=== PATIENT | female | born 1975 | race Caucasian/White ===

== ENCOUNTER 2022-02-10 05:35 | Day surgery (SDC) | payer OTHER, MEDICARE, MEDICAID ==
[~2022-02-10] VITALS: Ht 170.2 cm; Wt 94.5 kg
[~2022-02-10 05:35] MED LIST: CALC-933 PO; CHLO100T42 PO; CLON-592 PO; DOCU-350 PO; FEXO180T94 PO; LEVO1TAB12 PO; LINA290C PO; MAGN-169 PO; METO25 PO; OMEG1CAP45 PO
[2022-02-10] MEDS ORDERED: MIDAZOLAM HCL 2 MG/2 ML VIAL IVP ONE (05:36)
[2022-02-10] MEDS ORDERED: FentaNYL CITRATE PF 100 MCG/2 ML VIAL IVP ONE (05:36)
[2022-02-10] MEDS ORDERED: RINGERS SOLUTION,LACTATED 1,000 ML IV ONE (06:00)
[2022-02-10 06:36] LABS: COVID AG,FIA SOURCE NASOPHARYNGEAL
[2022-02-10 08:18] LABS: BASOPHILS % (AUTO) 0.9 % (0.0-2.0); EOSINOPHILS % (AUTO) 2.5 % (1.0-6.0); HEMATOCRIT 36.6 % (36-46); HEMOGLOBIN 12.4 g/dL (12.0-16.0); LYMPHOCYTES # (AUTO) 1.8 K/uL (1.0-4.8); LYMPHOCYTES % (AUTO) 22.1 % (22.0-44.0); MEAN CORPUSCULAR HEMOGLOBIN 28.9 pg (26.0-34.0); MEAN CORPUSCULAR HGB CONC 33.9 G/dL (31.0-37.0); MEAN CORPUSCULAR VOLUME 85 fL (80-100); MONOCYTES # (AUTO) 0.6 K/uL (0.1-1.0); MONOCYTES % (AUTO) 7.1 % (2.0-9.0); NEUTROPHILS # (AUTO) 5.5 K/uL (1.8-7.7); NEUTROPHILS % (AUTO) 67.4 % (40.0-70.0); PLATELET COUNT (AUTO) 258 K/uL (150-450); RED CELL DISTRIBUTION WIDTH 13.9 % (11.5-14.5)
[2022-02-10 08:27] LABS: ANION GAP 5 mmol/L (8-16); CALCIUM, TOTAL 8.6 mg/dL (8.8-10.5); CARBON DIOXIDE 29 mmol/L (22-29); CHLORIDE 96 mmol/L (98-107); CREATININE 0.71 mg/dL (0.60-1.30); GLOMERULAR FILTR. RATE CALC > 60 mL/min (>60); GLUCOSE,RANDOM 109 mg/dL (70-110); POTASSIUM 4.4 mmol/L (3.5-5.1); SODIUM SERUM 130 mmol/L (136-145); UREA NITROGEN, BLOOD 10 mg/dL (7-18)
[2022-02-10 08:34] LABS: ALANINE AMINOTRANSFERASE 23 U/L (12-78); ALBUMIN 3.2 g/dL (3.4-5.0); ALKALINE PHOSPHATASE 107 U/L (46-116); ASPARTATE AMINOTRANSFERASE 16 U/L (15-37); BILIRUBIN,TOTAL 0.2 mg/dL (0.1-1.0); TOTAL PROTEIN, SERUM 7.6 g/dL (6.4-8.2)
[2022-02-10] MEDS ORDERED: AMPICILLIN SODIUM 2 GM/NS 100 ML IV ONE (08:37)
[2022-02-10 08:50] LABS: PROTHROMBIN TIME 10.4 SEC (9.4-11.6)
== END 2022-02-10 12:55 | disposition home or self-care (01) ==
LOC: SURGERY 05:35
PROVIDERS: ATTEND Dentist General Practice
DX: K02.9 Dental caries, unspecified (principal); E11.9 Type 2 diabetes mellitus without complications; K05.30 Chronic periodontitis, unspecified; K03.6 Deposits [accretions] on teeth; Z79.899 Other long term (current) drug therapy; Z91.09 Other allergy status, other than to drugs and biological substances; Z98.890 Other specified postprocedural states; Z79.01 Long term (current) use of anticoagulants
CPT/HCPCS: 36415; 41899; 71045; 80053; 85025; 85610; 85730; 87426; 93005; C9803; J0290; J2250; J3010

== ENCOUNTER 2024-05-06 10:36 | Day surgery (SDC) | payer MEDICARE, OTHER ==
[~2024-05-06] VITALS: Ht 167.6 cm; Wt 87.7 kg
[~2024-05-06 10:36] MED LIST changes: -DOCU-350 PO; +DOCU-412 PO; +LIDOCAINE/PF 2% 5 ML VIAL ONE; +PROPOFOL 1% 20 ML VIAL IVP ONE
[2024-05-06] MEDS: SODIUM CHLORIDE 0.9% 1,000 ML IV ONE (11:24)
[2024-05-06] MEDS ORDERED: CHLO25TA70 PO (12:00)
[2024-05-06] MEDS ORDERED: PANT40TA54 PO (12:00)
[2024-05-06] MEDS ORDERED: BISA-184 PO (12:00)
[2024-05-06] MEDS ORDERED: METH1TAB66 PO (12:00)
[2024-05-06] MEDS ORDERED: LACT10SO95 PO (12:00)
[2024-05-06] MEDS ORDERED: METF-1211 PO (12:00)
[2024-05-06] MEDS ORDERED: OXCA600T37 PO (12:00)
[2024-05-06] MEDS ORDERED: ESCI-8 PO (12:00)
[2024-05-06 12:40] LABS: GLUCOMETER DEV NAME(LOC) SDS.; GLUCOSE,POINT OF CARE 114 MG/DL (70-110)
== END 2024-05-06 15:35 | disposition home or self-care (01) ==
LOC: SURGERY 10:36
PROVIDERS: ATTEND Internal Medicine Gastroenterology
DX: R10.9 Unspecified abdominal pain (principal); K63.5 Polyp of colon; K21.9 Gastro-esophageal reflux disease without esophagitis; R10.13 Epigastric pain; K64.8 Other hemorrhoids; R14.0 Abdominal distension (gaseous); K29.50 Unspecified chronic gastritis without bleeding; K31.7 Polyp of stomach and duodenum; F41.9 Anxiety disorder, unspecified; F84.0 Autistic disorder; E11.9 Type 2 diabetes mellitus without complications; E66.3 Overweight; Z68.31 Body mass index [BMI] 31.0-31.9, adult; Z98.818 Other dental procedure status; Z90.49 Acquired absence of other specified parts of digestive tract; Z98.890 Other specified postprocedural states; Z79.84 Long term (current) use of oral hypoglycemic drugs; Z79.899 Other long term (current) drug therapy; Z88.8 Allergy status to other drugs, medicaments and biological substances
CPT/HCPCS: 45385; 43239; 82962; 84702; 84703; 36415; 88305; 88312; 88313; J2704; J3490

== ENCOUNTER 2025-01-02 05:13 | Day surgery (SDC) | payer OTHER, MEDICARE ==
[~2025-01-02] VITALS: Ht 170.2 cm; Wt 84.1 kg
[~2025-01-02 05:13] MED LIST changes: +BISA-184 PO; -CALC-933 PO; -CHLO100T42 PO; +CHLO25TA82 PO; -DOCU-412 PO; +ESCI-8 PO; -FEXO180T94 PO; +LACT-451 PO; -LEVO1TAB12 PO; -LIDOCAINE/PF 2% 5 ML VIAL ONE; -LINA290C PO; -MAGN-169 PO; +METF-1211 PO; +METH1TAB66 PO; -OMEG1CAP45 PO; +OXCA600T37 PO; +PANT40TA54 PO; -PROPOFOL 1% 20 ML VIAL IVP ONE
[2025-01-02] MEDS ORDERED: RINGERS SOLUTION,LACTATED 1,000 ML IV ONE (06:59)
[2025-01-02] MEDS ORDERED: AMPICILLIN SODIUM 2 GM/NS 100 ML IV ONE (07:19)
[2025-01-02 07:51] LABS: BASOPHILS % (AUTO) 0.9 % (0.0-2.0); EOSINOPHILS % (AUTO) 3.4 % (1.0-6.0); HEMOGLOBIN 12.6 g/dL (12.0-16.0); LYMPHOCYTES # (AUTO) 1.7 K/uL (1.0-4.8); LYMPHOCYTES % (AUTO) 34.4 % (22.0-44.0); MEAN CORPUSCULAR HEMOGLOBIN 28.4 pg (26.0-34.0); MEAN CORPUSCULAR HGB CONC 33.1 G/dL (31.0-37.0); MEAN CORPUSCULAR VOLUME 86 fL (80-100); MONOCYTES # (AUTO) 0.5 K/uL (0.1-1.0); NEUTROPHILS # (AUTO) 2.5 K/uL (1.8-7.7); NEUTROPHILS % (AUTO) 50.3 % (40.0-70.0); PLATELET COUNT (AUTO) 294 K/uL (150-450); RED BLOOD CELL COUNT(AUTO) 4.42 MIL/uL (4.00-5.20); RED CELL DISTRIBUTION WIDTH 16.1 % (11.5-14.5)
[2025-01-02 07:59] LABS: ANION GAP 4 mmol/L (8-16); CARBON DIOXIDE 30 mmol/L (22-29); CHLORIDE 98 mmol/L (98-107); CREATININE 0.67 mg/dL (0.60-1.30); GLOMERULAR FILTR. RATE CALC > 60 mL/min (>60); GLUCOSE,RANDOM 119 mg/dL (70-110); POTASSIUM 4.5 mmol/L (3.5-5.1); SODIUM SERUM 132 mmol/L (136-145); UREA NITROGEN, BLOOD 12 mg/dL (7-18)
[2025-01-02 08:02] LABS: PROTHROMBIN TIME 9.8 SEC (9.4-11.6)
[2025-01-02 08:04] LABS: ALANINE AMINOTRANSFERASE 27 U/L (12-78); ALBUMIN 3.4 g/dL (3.4-5.0); ALKALINE PHOSPHATASE 94 U/L (46-116); ASPARTATE AMINOTRANSFERASE 16 U/L (15-37); BILIRUBIN,TOTAL 0.2 mg/dL (0.1-1.0); TOTAL PROTEIN, SERUM 7.6 g/dL (6.4-8.2)
[2025-01-02] MEDS ORDERED: QUET50TA24 PO (08:21)
[2025-01-02] MEDS ORDERED: FERR325T23 PO (08:21)
[2025-01-02] MEDS ORDERED: CHLO25TA69 PO (08:21)
[2025-01-02] MEDS ORDERED: CLON0.5T4 PO (08:21)
[2025-01-02] MEDS ORDERED: [UNRECOGNIZED DRUG - CODE] PO (08:21)
[2025-01-02] MEDS ORDERED: PROP10DR4 OU (08:21)
[2025-01-02] MEDS ORDERED: PANT-31 PO (08:21)
[2025-01-02] MEDS ORDERED: LINA72CA PO (08:21)
[2025-01-02] MEDS ORDERED: METO25 PO (08:21)
[2025-01-02] MEDS ORDERED: CETI10TA58 PO (08:21)
[2025-01-02] MEDS ORDERED: ASCO500 PO (08:24)
[2025-01-02] MEDS ORDERED: CARI3CAP PO (08:24)
[2025-01-02] MEDS ORDERED: CALC-613 PO (08:24)
[2025-01-02] MEDS: RINGERS SOLUTION,LACTATED 1,000 ML IV ONE (09:01)
[2025-01-02] MEDS: BUPIVACAINE 0.25%/EPI 1:200,000/PF 30 ML VIAL ONE (11:10)
[2025-01-02] MEDS ORDERED: LIDOCAINE/PF 2% 5 ML VIAL ONE (12:00)
[2025-01-02] MEDS ORDERED: METOPROLOL TARTRATE 5 MG/5 ML VIAL ONE (12:00)
[2025-01-02] MEDS ORDERED: ROCURONIUM BROMIDE 10 MG/ML 5 ML VIAL ONE (12:00)
[2025-01-02] MEDS ORDERED: DEXAMETHASONE SOD PHOS 4 MG/ML VIAL ONE (12:00)
[2025-01-02] MEDS ORDERED: ONDANSETRON HCL 4 MG/2 ML VIAL ONE (12:00)
[2025-01-02] MEDS ORDERED: PROPOFOL 1% 20 ML VIAL IVP ONE (12:00)
[2025-01-02] MEDS ORDERED: 0.9% SODIUM CHLORIDE 10 ML VIAL ONE (12:00)
[2025-01-02] MEDS ORDERED: SUGAMMADEX SODIUM 200 MG/2 ML VIAL IVP ONE (12:00)
== END 2025-01-02 12:40 | disposition home or self-care (01) ==
LOC: SURGERY 05:13
PROVIDERS: ATTEND Dentist General Practice
DX: K02.9 Dental caries, unspecified (principal); K05.30 Chronic periodontitis, unspecified; K59.00 Constipation, unspecified; I10 Essential (primary) hypertension; E11.9 Type 2 diabetes mellitus without complications; F32.A Depression, unspecified; G40.909 Epilepsy, unspecified, not intractable, without status epilepticus; F84.0 Autistic disorder; K21.9 Gastro-esophageal reflux disease without esophagitis; F41.9 Anxiety disorder, unspecified; Z79.899 Other long term (current) drug therapy; Z79.01 Long term (current) use of anticoagulants; Z98.890 Other specified postprocedural states; Z90.49 Acquired absence of other specified parts of digestive tract
CPT/HCPCS: 41899; 71045; 80053; 84703; 85025; 85610; 85730; 36415; 93005; J0666; J0290; J2704; J1100; J3490 ×4; J2405; J7120